=== PATIENT | female | born 1955 | race African-American/Black ===

== ENCOUNTER 2017-09-11 09:54 | Emergency (ER) | payer BC, OTHER ==
[2017-09-11] MEDS ORDERED: TRAMADOL HCL 50 MG TAB ONE (11:26)
--- NOTE | 2017-09-11 11:46 | RAD REPORT ---
EXAM DESCRIPTION: RAD - Hip Left 2 View - 09/11/2017 11:20 am CLINICAL HISTORY: Nontraumatic left hip pain COMPARISON: None. FINDINGS: AP and frogleg views of the left hip were obtained. There is no fracture or dislocation. F emoral head maintains smooth rounded contour. No AVN or focal femoral head abnormality. Joint space i s narrowed slightly. There degenerative spurring changes along the superior acetabular rim and superi or joint line. No periarticular mass. No calcification or other soft tissue abnormality. IMPRESSION: Mild left hip joint degenerative change. No acute finding identifiable.
--- NOTE | 2017-09-11 11:49 | EDPHYS ---
Physician Documentation [facility] Name: Janet Fritz Age: 62 yrs Sex: Female : 1955 Arrival Date: 09/11/2017 Time: 09:56 Bed 12 Private MD: ED Physician Tom Hopkins HPI: 09/11 11:00 This 62 yrs old Black Female presents to ER via Ambulatory with complaints of Hip Pain. kb 11:00 The patient or guardian reports pain. that occurred at home, sustained from unknown kb reason, There is no obvious deformity, The patient is able to self ambulate. The patient is able to bear their full body weight. There is no radiation of the patient's discomfort. The complaints affect the left hip. Onset: The symptoms/episode began/occurred 2 day(s) ago. Modifying factors: The symptoms are alleviated by nothing, the symptoms are aggravated by any movement. Associated signs and symptoms: Loss of consciousness: the patient experienced no loss of consciousness, Pertinent positives: None. Severity of symptoms: At their worst the symptoms were mild, moderate, in the emergency department the symptoms are unchanged. The patient has not experienced similar symptoms in the past. The patient has not recently seen a physician. Pt states she has had pain to left hip since Friday. States pain is worse with movement, especially standing from sitting position. Historical: - Allergies: 10:13 No Known Allergies; aj - Home Meds: 10:13 unknown HTN meds [Active]; Unknown thyroid med [Active]; aj - PMHx: 10:13 Hypertension; thyroid cancer; aj - PSHx: 10:13 None; aj - Immunization history:: Adult Immunizations up to date. - Social history:: Smoking status: Patient/guardian denies using tobacco. ROS: 11:00 Constitutional: Negative for fever, chills, and weight loss, Cardiovascular: Negative kb for chest pain, palpitations, and edema, Respiratory: Negative for shortness of breath, cough, wheezing, and pleuritic chest pain, Abdomen/GI: Negative for abdominal pain, nausea, vomiting, diarrhea, and constipation, Skin: Negative for injury, rash, and discoloration, Neuro: Negative for headache, weakness, numbness, tingling, and seizure. 11:00 MS/extremity: Positive for pain, tenderness, of the left hip. Exam: 11:00 Constitutional: This is a well developed, well nourished patient who is awake, alert, kb and in no acute distress. Head/Face: Normocephalic, atraumatic. Chest/axilla: Normal chest wall appearance and motion. Nontender with no deformity. No lesions are appreciated. Cardiovascular: Regular rate and rhythm with a normal S1 and S2. No gallops, murmurs, or rubs. Normal PMI, no JVD. No pulse deficits. Respiratory: Lungs have equal breath sounds bilaterally, clear to auscultation and percussion. No rales, rhonchi or wheezes noted. No increased work of breathing, no retractions or nasal flaring. Abdomen/GI: Soft, non-tender, with normal bowel sounds. No distension or tympany. No guarding or rebound. No evidence of tenderness throughout. Skin: Warm, dry with normal turgor. Normal color with no rashes, no lesions, and no evidence of cellulitis. Neuro: Awake and alert, GCS 15, oriented to person, place, time, and situation. Cranial nerves II-XII grossly intact. Motor strength 5/5 in all extremities. Sensory grossly intact. Cerebellar exam normal. Normal gait. 11:00 Musculoskeletal/extremity: Extremities: grossly normal except: noted in the left hip: pain, swelling, ROM: intact in all extremities, Circulation is intact in all extremities. Sensation intact. Weight bearing: able to fully bear weight. Vital Signs: 10:13 BP 120 / 88; Pulse 97; Resp 18; Temp 97.9; Pulse Ox 99% on R/A; Weight 97.07 kg; Height aj 5 ft. 4 in. (162.56 cm); Pain 8/10; 11:36 BP 114 / 66; Pulse 85; Resp 17; Pulse Ox 99% on R/A; dh3 10:13 Body Mass Index 36.73 (97.07 kg, 162.56 cm) aj MDM: 10:57 Patient medically screened. kb 11:00 Data reviewed: vital signs, nurses notes. Data interpreted: Pulse oximetry: on room air kb is 99 %. Interpretation: normal. 11:48 Counseling: I had a detailed discussion with the patient and/or guardian regarding: the kb historical points, exam findings, and any diagnostic results supporting the discharge/admit diagnosis, radiology results, the need for outpatient follow up, a family practitioner, to return to the emergency department if symptoms worsen or persist or if there are any questions or concerns that arise at home. 09/11 10:58 Order name: Hip Left 2 View XRAY; Complete Time: 11:48 kb Administered Medications: 11:28 Drug: traMADol 50 mg Route: PO; dm5 11:55 Follow up: Response: No adverse reaction; Pain is unchanged, physician notified dm5 Disposition: 09/12 07:55 Co-signature as Attending Physician, Tom Hopkins MD I agree with the assessment and wy plan of care. Disposition: 09/11/17 11:48 Discharged to Home. Impression: Pain in left hip. - Condition is Stable. - Discharge Instructions: Hip Pain. - Prescriptions for Tramadol 50 mg Oral Tablet - take 1 tablet by ORAL route every 8 hours as needed; 12 tablet. - Medication Reconciliation Form, Thank You Letter, Antibiotic Education, Prescription Opioid Use form. - Follow up: Emergency Department; When: As needed; Reason: Worsening of condition. Follow up: Private Physician; When: 2 - 3 days; Reason: Recheck today's complaints, Continuance of care, Re-evaluation by your physician. Signatures: Dispatcher [employer] Deborah Noyola, CAREER TECHNICAL EDUCATION INSTRUCTOR-C CAREER TECHNICAL EDUCATION INSTRUCTOR-Kim Palomares RN RN dm5 Myers, Amanda, RN RN aj Appiah, MD ORESTES Santos wy
--- NOTE | 2017-09-11 11:49 | ER ---
Nurse's Notes [facility] Name: Janet Fritz Age: 62 yrs Sex: Female : 1955 Arrival Date: 09/11/2017 Time: 09:56 Bed 12 Private MD: Diagnosis: Pain in left hip Presentation: 09/11 10:11 Presenting complaint: Patient states: Reports Left hip pain that started Friday aj after patient "cleaned my room real good and vacuumed everything." reports pain is worse with movement, denies burning with urination or blood in urine. Transition of care: patient was not received from another setting of care. Onset of symptoms was September 09, 2017. Care prior to arrival: None. 10:11 Method Of Arrival: Ambulatory 10:11 Acuity: PRISCA 4 aj Triage Assessment: 10:13 General: Appears in no apparent distress. comfortable, Behavior is calm, cooperative, aj appropriate for age. Pain: Complains of pain in left iliac crest and left hip. Neuro: Level of Consciousness is awake, alert, obeys commands, Oriented to person, place, time, situation. Respiratory: Airway is patent Respiratory effort is even, unlabored, Respiratory pattern is regular, symmetrical. : Denies burning with urination. Derm: Skin is intact, is healthy with good turgor, Skin is pink, warm \\T\\ dry. normal. Historical: - Allergies: 10:13 No Known Allergies; aj - Home Meds: 10:13 unknown HTN meds [Active]; Unknown thyroid med [Active]; aj - PMHx: 10:13 Hypertension; thyroid cancer; aj - PSHx: 10:13 None; aj - Immunization history:: Adult Immunizations up to date. - Social history:: Smoking status: Patient/guardian denies using tobacco. Screenin:50 Abuse screen: Denies threats or abuse. Denies injuries from another. Nutritional dm5 screening: No deficits noted. Tuberculosis screening: No symptoms or risk factors identified. Fall Risk None identified. Assessment: 10:47 General: Appears in no apparent distress. uncomfortable, Behavior is calm, cooperative. dm5 Pain: Complains of pain in left hip Pain at worst was 10 out of 10 on a pain scale. Pain began 2-3 days ago. Is continuous, Aggravated by weight bearing. Neuro: Level of Consciousness is awake, alert, obeys commands, Oriented to person, place, time. Respiratory: Airway is patent Respiratory effort is even, unlabored, Respiratory pattern is regular, symmetrical. Derm: Skin is pink, warm \\T\\ dry. Musculoskeletal: Reports pain in left hip Pain is 10 out of 10 on a pain scale. pain is at its worst when patient rises from laying or sitting position. Injury Description: no injury reported "pain just started". 11:55 Reassessment: No changes from previously documented assessment. Patient is alert, dm5 oriented x 3, equal unlabored respirations, skin warm/dry/pink. patient still in some pain but less than initially stated.. Vital Signs: 10:13 BP 120 / 88; Pulse 97; Resp 18; Temp 97.9; Pulse Ox 99% on R/A; Weight 97.07 kg; Height aj 5 ft. 4 in. (162.56 cm); Pain 8/10; 11:36 BP 114 / 66; Pulse 85; Resp 17; Pulse Ox 99% on R/A; dh3 10:13 Body Mass Index 36.73 (97.07 kg, 162.56 cm) aj ED Course: 09:56 Patient arrived in ED. as 10:12 Triage completed. aj 10:13 Arm band placed on left wrist. Patient placed in waiting room, Patient notified of wait aj time. 10:47 Kim Varghese, RN is Primary Nurse. dm5 10:50 Awaiting ED provider evaluation. dm5 10:50 Patient has correct armband on for positive identification. dm5 10:56 Deborah Isaacs FNP-C is [facility]. kb 10:56 Tom Hopkins MD is Attending Physician. kb 11:14 Patient moved to radiology via wheelchair. kw1 11:18 X-ray completed. Patient tolerated procedure well. Patient moved back from radiology. sw 11:19 Hip Left 2 View XRAY In Process Unspecified. EDMS 11:55 No provider procedures requiring assistance completed. Patient did not have IV access dm5 during this emergency room visit. Administered Medications: 11:28 Drug: traMADol 50 mg Route: PO; dm5 11:55 Follow up: Response: No adverse reaction; Pain is unchanged, physician notified dm5 Outcome: 11:48 Discharge ordered by . kb 11:56 Discharged to home ambulatory. dm5 11:56 Condition: good 11:56 Discharge instructions given to patient, Instructed on discharge instructions, follow up and referral plans. medication usage, Demonstrated understanding of instructions, follow-up care, medications, Prescriptions given X 1. 11:57 Patient left the ED. dm5 Signatures: Dispatcher [employer] EDMS Deborah Isaacs, PATIENT SERVICES MANAGER-C PATIENT SERVICES MANAGER-Kim Palomares, ALEJANDRA ROBERTS dm5 Ena Rashid RN RN aj Martinez, Amelia as Warren Ange Katelynn Coyle [facility]
== END 2017-09-11 11:57 | disposition home or self-care (01) ==
LOC: ER 09:54
DX: M25.552 Pain in left hip (principal); I10 Essential (primary) hypertension; Z85.850 Personal history of malignant neoplasm of thyroid; X58.XXXA Exposure to other specified factors, initial encounter; Y93.9 Activity, unspecified; Y92.009 Unspecified place in unspecified non-institutional (private) residence as the place of occurrence of the external cause
CPT/HCPCS: 99283

== ENCOUNTER 2019-05-02 14:18 | Emergency (ER) | payer BC, OTHER ==
--- NOTE | 2019-05-02 16:02 | ER ---
Nurse's Notes [facility] Name: Janet Fritz Age: 64 yrs Sex: Female : 1955 Arrival Date: 05/02/2019 Time: 14:19 Bed 26 Private MD: Stephanie Donnelly C Diagnosis: Pain in right leg Presentation: 05/02 14:28 Presenting complaint: Patient states: Pain to right leg since yesterday, denies injury. aj1 Patient reports pain behind right knee. Transition of care: patient was not received from another setting of care. Onset of symptoms was May 02, 2019. Risk Assessment: Do you want to hurt yourself or someone else? Patient reports no desire to harm self or others. Initial Sepsis Screen: Does the patient meet any 2 criteria? No. Patient's initial sepsis screen is negative. Does the patient have a suspected source of infection? No. Patient's initial sepsis screen is negative. Care prior to arrival: None. 14:28 Method Of Arrival: Wheelchair aj1 14:28 Acuity: PRISCA 4 aj1 Triage Assessment: 14:30 General: Appears in no apparent distress. comfortable, Behavior is calm, cooperative, aj1 appropriate for age. Pain: Complains of pain in posterior aspect of right knee Pain currently is 10 out of 10 on a pain scale. Neuro: Level of Consciousness is awake, alert, obeys commands. Cardiovascular: Patient's skin is warm and dry. Respiratory: Airway is patent Respiratory effort is even, unlabored, Respiratory pattern is regular, symmetrical. Historical: - Allergies: 14:30 No Known Allergies; aj1 - PMHx: 14:30 Hypertension; THYROID CANCER; aj1 - Immunization history:: Flu vaccine is up to date. - Social history:: Smoking status: Patient/guardian denies using tobacco. - Ebola Screening: : Patient denies travel to an Ebola-affected area in the 21 days before illness onset. Screenin:25 Abuse screen: Denies threats or abuse. Denies injuries from another. Nutritional mg2 screening: No deficits noted. Tuberculosis screening: No symptoms or risk factors identified. Fall Risk None identified. Assessment: 15:24 General: Appears in no apparent distress. comfortable, Behavior is calm, cooperative. mg2 Pain: Complains of pain in right leg Pain does not radiate. Quality of pain is described as aching, Pain began gradually, 1 day ago. Is intermittent. Neuro: Level of Consciousness is awake, alert, obeys commands, Oriented to person, place, time, situation. Cardiovascular: Capillary refill < 3 seconds Patient's skin is warm and dry. Respiratory: Airway is patent Respiratory effort is even, unlabored, Respiratory pattern is regular, symmetrical. GI: No signs and/or symptoms were reported involving the gastrointestinal system. : No deficits noted. EENT: No signs and/or symptoms were reported regarding the EENT system. Derm: Skin is intact, is healthy with good turgor, Skin is pink, warm \T\ dry. normal. Musculoskeletal: Circulation, motion, and sensation intact. Capillary refill < 3 seconds, Reports pain in posterior aspect of right knee. 15:26 Reassessment: bedside ultrasound at bedside now. mg2 16:12 Reassessment: Patient appears in no apparent distress at this time. mg2 Vital Signs: 14:30 BP 134 / 78; Pulse 104; Resp 20; Temp 98.2; Pulse Ox 97% on R/A; Weight 97.52 kg (R); aj1 Height 5 ft. 3 in. (160.02 cm) (R); Pain 10/10; 15:24 BP 139 / 92; Pulse 88; Resp 18; Pulse Ox 98% on R/A; mg2 16:12 BP 133 / 78; Pulse 89; Resp 18; Temp 98(O); Pulse Ox 100% ; mg2 14:30 Body Mass Index 38.09 (97.52 kg, 160.02 cm) aj1 ED Course: 14:19 Patient arrived in ED. as 14:20 Stephanie Donnelly MD is Private Physician. as 14:29 Triage completed. aj1 14:30 Arm band placed on Patient placed in an exam room. aj1 14:36 Kimo Alejo, ALEJANDRA is Primary Nurse. mg2 14:37 Deborah Isaacs FNP-C is [facility]. kb 14:37 Rob Chirinos MD is Attending Physician. kb 15:26 Patient has correct armband on for positive identification. Pulse ox on. NIBP on. Door mg2 closed. Warm blanket given. 15:26 No provider procedures requiring assistance completed. Patient did not have IV access mg2 during this emergency room visit. 15:41 US Extremity Venous Unilateral Ltd In Process Unspecified. EDMS 16:00 Stephanie Donnelly MD is Referral Physician. carroll Administered Medications: No medications were administered Outcome: 16:01 Discharge ordered by . carroll 16:13 Discharged to home via wheelchair, with family. mg2 16:13 Condition: stable 16:13 Discharge instructions given to patient, family, Instructed on discharge instructions, follow up and referral plans. medication usage, Demonstrated understanding of instructions, follow-up care, medications, Prescriptions given X 2. 16:13 Patient left the ED. mg2 Signatures: Dispatcher [employer] EDWI Deborah Isaacs, RN HEMO DIALYSIS-C RN HEMO DIALYSIS-CkAgueda Steve, RN RN aj1 Cheryl Orellana Michele, RN RN mg2
--- NOTE | 2019-05-02 16:02 | RAD REPORT ---
EXAM DESCRIPTION: US - Extremity Venous Uni Ltd - 05/02/2019 3:41 pm CLINICAL HISTORY: PAIN Leg swelling and edema. COMPARISON: <Comparisons> FINDINGS: Right lower extremity venous system was interrogated with Doppler technique. Normal flow, compressibility and augmentation was noted. There is no DVT present. IMPRESSION: No evidence of right lower extremity deep venous thrombosis.
--- NOTE | 2019-05-02 16:03 | EDPHYS ---
Physician Documentation [facility] Name: Janet Fritz Age: 64 yrs Sex: Female : 1955 Arrival Date: 05/02/2019 Time: 14:19 Bed 26 Private MD: Stephanie Donnelly C ED Physician Rob Chirinos HPI: 05/02 15:22 This 64 yrs old Black Female presents to ER via Wheelchair with complaints of Leg Pain. kb 15:22 The patient presents with decreased range of motion, pain. The complaints affect the kb posterior aspect of right knee. Context: The problem was sustained at home, resulted from an unknown cause, the patient can fully bear weight, the patient is able to ambulate. Onset: The symptoms/episode began/occurred this morning. Modifying factors: The symptoms are alleviated by nothing. the symptoms are aggravated by weight bearing. Associated signs and symptoms: The patient has no apparent associated signs or symptoms. Treatment prior to arrival includes: no previous treatment. Severity of symptoms: At their worst the symptoms were moderate, in the emergency department the symptoms are unchanged. The patient has not experienced similar symptoms in the past. The patient has not recently seen a physician. Pt reports pain behind right knee that started this morning. Denies injury or trauma. Historical: - Allergies: 14:30 No Known Allergies; aj1 - PMHx: 14:30 Hypertension; THYROID CANCER; aj1 - Immunization history:: Flu vaccine is up to date. - Social history:: Smoking status: Patient/guardian denies using tobacco. - Ebola Screening: : Patient denies travel to an Ebola-affected area in the 21 days before illness onset. ROS: 15:21 Constitutional: Negative for fever, chills, and weight loss, ENT: Negative for injury, kb pain, and discharge, Neck: Negative for injury, pain, and swelling, Cardiovascular: Negative for chest pain, palpitations, and edema, Respiratory: Negative for shortness of breath, cough, wheezing, and pleuritic chest pain, Abdomen/GI: Negative for abdominal pain, nausea, vomiting, diarrhea, and constipation, Back: Negative for injury and pain, Skin: Negative for injury, rash, and discoloration, Neuro: Negative for headache, weakness, numbness, tingling, and seizure. 15:21 MS/extremity: Positive for pain, of the right leg. Exam: 15:21 Constitutional: This is a well developed, well nourished patient who is awake, alert, kb and in no acute distress. Head/Face: Normocephalic, atraumatic. Chest/axilla: Normal chest wall appearance and motion. Nontender with no deformity. No lesions are appreciated. Cardiovascular: Regular rate and rhythm with a normal S1 and S2. No gallops, murmurs, or rubs. Normal PMI, no JVD. No pulse deficits. Respiratory: Lungs have equal breath sounds bilaterally, clear to auscultation and percussion. No rales, rhonchi or wheezes noted. No increased work of breathing, no retractions or nasal flaring. Abdomen/GI: Soft, non-tender, with normal bowel sounds. No distension or tympany. No guarding or rebound. No evidence of tenderness throughout. Back: No spinal tenderness. No costovertebral tenderness. Full range of motion. Skin: Warm, dry with normal turgor. Normal color with no rashes, no lesions, and no evidence of cellulitis. MS/ Extremity: Pulses equal, no cyanosis. Neurovascular intact. Full, normal range of motion. Neuro: Awake and alert, GCS 15, oriented to person, place, time, and situation. Cranial nerves II-XII grossly intact. Motor strength 5/5 in all extremities. Sensory grossly intact. Cerebellar exam normal. Normal gait. Vital Signs: 14:30 BP 134 / 78; Pulse 104; Resp 20; Temp 98.2; Pulse Ox 97% on R/A; Weight 97.52 kg (R); aj1 Height 5 ft. 3 in. (160.02 cm) (R); Pain 10/10; 15:24 BP 139 / 92; Pulse 88; Resp 18; Pulse Ox 98% on R/A; mg2 16:12 BP 133 / 78; Pulse 89; Resp 18; Temp 98(O); Pulse Ox 100% ; mg2 14:30 Body Mass Index 38.09 (97.52 kg, 160.02 cm) aj1 MDM: 14:37 Patient medically screened. kb 15:21 Data reviewed: vital signs, nurses notes. Data interpreted: Pulse oximetry: on room air kb is 97 %. Interpretation: normal. 16:00 Counseling: I had a detailed discussion with the patient and/or guardian regarding: the kb historical points, exam findings, and any diagnostic results supporting the discharge/admit diagnosis, radiology results, the need for outpatient follow up, a family practitioner, to return to the emergency department if symptoms worsen or persist or if there are any questions or concerns that arise at home. 05/02 14:44 Order name: US Extremity Venous Unilateral Ltd; Complete Time: 16:10 kb Administered Medications: No medications were administered Disposition: 17:51 Co-signature as Attending Physician, Rob Chirinos MD Did not see or evaluate the ps1 patient. Signing the chart for administrative purposes. Not an endorsement of care provided. . Disposition: 05/02/19 16:01 Discharged to Home. Impression: Pain in right leg. - Condition is Stable. - Discharge Instructions: Musculoskeletal Pain. - Prescriptions for Cyclobenzaprine 10 mg Oral Tablet - take 1 tablet by ORAL route every 8 hours As needed; 21 tablet. Diclofenac Sodium 75 mg Oral Tablet, Delayed Release (E.C.) - take 1 tablet by ORAL route 2 times per day As needed; 30 tablet. - Medication Reconciliation Form, Thank You Letter, Antibiotic Education, Prescription Opioid Use form. - Follow up: Emergency Department; When: As needed; Reason: Worsening of condition. Follow up: Stephanie Donnelly MD; When: 2 - 3 days; Reason: Recheck today's complaints, Continuance of care, Re-evaluation by your physician. Signatures: Dispatcher [employer] EDDeborah George, STATION CAPTAIN-C STATION CAPTAIN-Agueda Chen RN RN aj1 Rob Chirinos MD MD ps1 Kimo Alejo RN RN mg2 Corrections: (The following items were deleted from the chart) 16:13 16:01 05/02/2019 16:01 Discharged to Home. Impression: Pain in right leg. Condition is mg2 Stable. Forms are Medication Reconciliation Form, Thank You Letter, Antibiotic Education, Prescription Opioid Use. Follow up: Emergency Department; When: As needed; Reason: Worsening of condition. Follow up: Stephanie Donnelly; When: 2 - 3 days; Reason: Recheck today's complaints, Continuance of care, Re-evaluation by your physician. kb
[2019-05-02 16:20] VITALS: BP 133/78; TEMP 98; O2SAT 100
== END 2019-05-02 16:13 | disposition home or self-care (01) ==
LOC: ER 14:18
DX: M79.604 Pain in right leg (principal)
CPT/HCPCS: 93971; 99283